=== PATIENT | female | born 1990 | race Caucasian/White ===

== ENCOUNTER 2016-06-06 11:44 | Emergency (ER) | payer SELFPAY ==
[2016-06-06] MEDS ORDERED: hydrOXYzine HCL TAB* 50 MG PO ONE (12:01)
[2016-06-06 14:37] VITALS: BP 116/59
--- NOTE | 2016-06-06 17:54 | ED ---
Shantel Hampton SooYoung, scribed for David Brito MD on 06/06/16 at 1200 . Allergic Reaction/Systemic - HPI Summary HPI Summary: A 25 y/o F NORAH presents to ED after an allergic reaction onset BUTCHER HEAD. Pt was eating a chicken sub when she became very pruritic, and was unable to breathe. She used her epi-pen. In ED, she states feeling OK, but feels as though "it's getting harder to breathe." She notes that the bottom of her throat hurts, but the top feels fine. - History of Current Complaint Chief Complaint: EDRespiratoryDistress Time Seen by Provider: 06/06/16 11:55 Hx Obtained From: Patient Hx Last Menstrual Period: one week ago Onset/Duration: Sudden Onset, Started minutes ago, Still Present Timing: Constant - Allergies/Home Medications Allergies/Adverse Reactions: Allergies Allergy/AdvReac Type Severity Reaction Status Date / Time mushrooms Allergy Severe Anaphylatic Uncoded 09/27/15 21:23 Shock PMH/Surg Hx/FS Hx/Imm Hx Previously Healthy: Yes Neurological History: Reports: Hx Headaches - SINCE 2011 Psychiatric History: Reports: Hx Depression - Surgical History Surgery Procedure, Year, and Place: 2013, T&A 2007 Infectious Disease History: No Infectious Disease History: Denies: Traveled Outside the [place] in Last 30 Days - Family History Known Family History: Positive: None Negative: Cardiac Disease, Diabetes - Social History Occupation: Unemployed - OTHER Lives: With Family Alcohol Use: None Hx Substance Use: No Substance Use Type: Reports: None Hx Tobacco Use: No Smoking Status (MU): Never Smoked Tobacco Review of Systems Positive: Other - allergic reaction Positive: Shortness Of Breath Positive: Other - pruritic, erythematous All Other Systems Reviewed And Are Negative: Yes Physical Exam Triage Information Reviewed: Yes Vital Signs On Initial Exam: Initial Vitals Temp Pulse Resp BP Pulse Ox 98.4 F 132 40 138/78 100 06/06/16 11:44 06/06/16 11:44 06/06/16 11:44 06/06/16 11:44 06/06/16 11:44 Vital Signs Reviewed: Yes Appearance: Positive: Well-Appearing, No Pain Distress Skin: Positive: Warm, Skin Color Reflects Adequate Perfusion, Dry Head/Face: Positive: Normal Head/Face Inspection Eyes: Positive: Normal ENT: Positive: Normal ENT inspection Neck: Positive: Supple, Nontender Respiratory/Lung Sounds: Positive: Clear to Auscultation, Breath Sounds Present Cardiovascular: Positive: Tachycardia Abdomen Description: Positive: Nontender, Soft Bowel Sounds: Positive: Present Musculoskeletal: Positive: Normal Neurological: Positive: Normal Psychiatric: Positive: Anxious - Mayo Coma Scale Coma Scale Total: 15 Diagnostics - Vital Signs Vital Signs Temp Pulse Resp BP Pulse Ox 06/06/16 11:54 24 06/06/16 11:50 98.4 F 128 23 122/62 100 06/06/16 11:44 98.4 F 132 40 138/78 100 - Laboratory Lab Statement: Any lab studies that have been ordered have been reviewed, and results considered in the medical decision making process. - EKG 1200 EKG Rhythm: Sinus Tachycardia Allergic Reaction Course/Dx - Course Course Of Treatment: Ana Cristina Lovell presented after accidently ingesting mushroom in a sandwich. EMS found her in extremis and administered her her own epi-pen as well as multiple other medications. She presented anxious and tachycardic and feeling still SOB. She was given hydroxyzine her for antihistamine and anxiolytic effects and observed. She improved a lot and her vitals normalized. She was observed until the epi had worn off. I prescribed another epi-pen for her but she has no insurance or money. I got SS's involved but there was no easy solution. I recommended that she carry benadryl at all times and call 911 at the first sign of allergic reaction. - Diagnoses Provider Diagnoses: food allergy Discharge - Discharge Plan Condition: Stable Disposition: HOME Patient Education Materials: Anaphylaxis (ED), Food Allergy (ED) Referrals: Jose Ramon Carney OLIVE GROWER [Primary Care Provider] - The documentation as recorded by the Shantel hidalgo SooYoung accurately reflects the service I personally performed and the decisions made by me, David Brito MD.
== END 2016-06-06 14:45 | disposition home or self-care (01) ==
LOC: ED 11:44
DX: T78.1XXA Other adverse food reactions, not elsewhere classified, initial encounter (principal); X58.XXXA Exposure to other specified factors, initial encounter; L29.9 Pruritus, unspecified
CPT/HCPCS: 93005; 99283; A9270-GY

== ENCOUNTER 2016-12-02 19:46 | Emergency (ER) | payer SELFPAY ==
[2016-12-02 20:28] VITALS: BP 131/95
--- NOTE | 2016-12-02 20:33 | UC ---
Abdominal Pain Female HPI - HPI Summary HPI Summary: This is a 26 yo female who recently found out she was who presents with c/o LLQ abdominal pain. She believes her LMP was 11/13/16. She denies vaginal discharge or bleeding. No dysuria or hematuria. She has been intermittently nauseous with vomiting. No fever. - History of Current Complaint Chief Complaint: UCAbdominalPain Stated Complaint: ABDOMINAL PAIN Hx Last Menstrual Period: 11/18/16 Allergies/Adverse Reactions: Allergies Allergy/AdvReac Type Severity Reaction Status Date / Time mushrooms Allergy Severe Anaphylatic Uncoded 12/02/16 20:01 Shock PMH/Surg Hx/FS Hx/Imm Hx Previously Healthy: Yes - - Surgical History Surgical History: Yes Surgery Procedure, Year, and Place: 2013, T&A 2007 - Family History Known Family History: Positive: None Negative: Cardiac Disease, Diabetes - Social History Alcohol Use: None Substance Use Type: None Smoking Status (MU): Never Smoked Tobacco - Immunization History Most Recent Influenza Vaccination: none Most Recent Tetanus Shot: declined Most Recent Pneumonia Vaccination: none Review of Systems Constitutional: Negative Skin: Negative Eyes: Negative ENT: Negative Respiratory: Negative Cardiovascular: Negative Gastrointestinal: Abdominal Pain, Vomiting, Nausea Genitourinary: Negative Motor: Negative Neurovascular: Negative Musculoskeletal: Negative Neurological: Negative Psychological: Negative Is Patient Immunocompromised?: No All Other Systems Reviewed And Are Negative: Yes Physical Exam Triage Information Reviewed: Yes Appearance: Well-Appearing Vital Signs: Initial Vital Signs Temp 98.1 F 12/02/16 19:57 Pulse 106 12/02/16 19:57 Resp 16 12/02/16 19:57 BP 131/95 12/02/16 19:57 Pulse Ox 100 12/02/16 19:57 Vital Signs Reviewed: Yes ENT Exam: Normal ENT: Positive: Hearing grossly normal Neck exam: Normal Neck: Positive: Supple, Nontender Respiratory: Positive: Lungs clear, Normal breath sounds. Negative: Crackles, Rhonchi, Wheezing Cardiovascular: Positive: RRR, No Murmur Abdomen Description: Positive: Soft, CVA Tenderness (L), Other: - mild LLQ Bowel Sounds: Positive: Present Musculoskeletal: Positive: Strength Intact Neurological: Positive: Alert, Muscle Tone Normal Psychological Exam: Normal Skin Exam: Normal Skin: Negative: rashes Diagnostics - Laboratory Diagnostic Studies Completed/Ordered: UA - +blood, +LE Abd Pain Female Course/Dx - Course Course Of Treatment: This is a 26 yo female who recently learned she was who presents with c/o abd pain. No assoc vag bleeding and UA is suggestive of possible UTI. US is necessary to assess in the setting of preg which is not available at this time. Recommend that she proceed to the ER for evaluation. She is stable to drive herself. - Differential Dx/Diagnosis Differential Diagnosis: Appendicitis, Pancreatitis, Pelvic Inflammatory Disease , Provider Diagnoses: 1. Abdominal pain during early Discharge - Discharge Plan Condition: Stable Disposition: HOME Patient Education Materials: Abdominal Pain in (ED) Referrals: Jose Ramon Carney [employer]PER[employer] [Primary Care Provider] - If Needed Additional Instructions: Instructions: 1. PLEASE PROCEED TO THE ER FOR FURTHER EVALUATION
== END 2016-12-02 20:28 | disposition home or self-care (01) ==
LOC: UCEAST 19:46
DX: O26.899 Other specified pregnancy related conditions, unspecified trimester (principal); R10.9 Unspecified abdominal pain; Z3A.00 Weeks of gestation of pregnancy not specified
CPT/HCPCS: 81003; 87086; 99212; G0463

== ENCOUNTER 2016-12-02 20:49 | Emergency (ER) | payer SELFPAY ==
[2016-12-02] MEDS ORDERED: NS 0.9% 1000 ML* 1,000 ML IV ONE (21:54)
[2016-12-02 22:20] LABS: Hematocrit 39 % (35-47); Hemoglobin 13.4 g/dl (12.0-16.0); Mean Corpuscular HGB Conc 35 g/dl (31-36); Mean Corpuscular Hemoglobin 31 pg (27-31); Mean Corpuscular Volume 90 fL (80-97); Mean Platelet Volume 8 um3 (7.4-10.4); Red Blood Count 4.32 10^6/ul (4.0-5.4); Red Cell Distribution Width 13 % (10.5-15); White Blood Count 9.5 10^3/ul (3.5-10.8)
[2016-12-02 22:36] LABS: Albumin 4.3 g/dL (3.2-5.2); BUN/Creatinine Ratio 13.3 (8-20); C Reactive Protein 6.03 mg/L (< 5.00); Calcium 9.7 mg/dL (8.6-10.3); EGFR African American 118.3 (>60); Globulin 2.7 g/dL (2-4); Magnesium 1.9 mg/dL (1.9-2.7); Potassium 3.5 mmol/L (3.5-5.0); Total Bilirubin 0.4 mg/dL (0.2-1.0)
[2016-12-02 22:47] LABS: Urine Bacteria Absent (Absent); Urine Bilirubin Negative (Negative); Urine Glucose Negative (Negative); Urine Nitrite Negative (Negative)
--- NOTE | 2016-12-02 23:41 | ED ---
Abdominal Pain/Female - HPI Summary HPI Summary: Patient presents to the ED with CC of left sided groin pain which she is concerned with ectopic. She took an at home test 3 days which came back positive. JOE is Dr. Villar and has appt next week. She has been on OCP's for months, and despite the medication, has become without missing any doses. She is . Groin pain began this morning without known injury or muscle strain. Denies urinary symptoms including hematuria. Denies history of kidney stones. Notes to mild left back pain yesterday, but denies any today. Pain is 2/10, constant and aching. Denies vaginal bleeding or discharge. Hx of ovarian cysts. Past surgical history includes . - History of Current Complaint Chief Complaint: EDAbdPain Stated Complaint: /ABD PAIN Time Seen by Provider: 12/02/16 21:54 Hx Obtained From: Patient Hx Last Menstrual Period: one week ago ?: Yes Onset/Duration: Sudden Onset Timing: Constant Severity Initially: Mild Severity Currently: Mild Pain Intensity: 5 Pain Scale Used: 0-10 Numeric Location: Discrete At: LLQ Radiates: No Character: Cramping Aggravating Factor(s): Nothing Alleviating Factor(s): Nothing Associated Signs and Symptoms: Positive: Negative. Negative: Vaginal Discharge , Nausea, Vomiting, Diarrhea - Risk Factors Ectopic Risk Factor: Negative Ovarian Torsion Risk Factor: Reproductive Age, Ovarian Cysts/Tumors Allergies/Adverse Reactions: Allergies Allergy/AdvReac Type Severity Reaction Status Date / Time mushrooms Allergy Severe Anaphylatic Uncoded 12/02/16 20:56 Shock PMH/Surg Hx/FS Hx/Imm Hx Previously Healthy: Yes Neurological History: Reports: Hx Headaches - SINCE 2011 Psychiatric History: Reports: Hx Depression - Surgical History Surgery Procedure, Year, and Place: 2013, T&A 2007 - Immunization History Hx Pertussis Vaccination: No Immunizations Up to Date: Unable to Obtain/Confirm Infectious Disease History: No Infectious Disease History: Denies: Traveled Outside the [place] in Last 30 Days - Family History Known Family History: Positive: None Negative: Cardiac Disease, Diabetes - Social History Occupation: Employed Part-time Lives: With Family Alcohol Use: None Hx Substance Use: No Substance Use Type: Reports: None Hx Tobacco Use: No Smoking Status (MU): Never Smoked Tobacco Review of Systems Constitutional: Negative Negative: Fever, Chills, Fatigue Cardiovascular: Negative Respiratory: Negative Positive: Abdominal Pain - LLQ pain Positive: no symptoms reported, see HPI Neurological: Negative Psychological: Normal All Other Systems Reviewed And Are Negative: Yes Physical Exam Triage Information Reviewed: Yes Vital Signs On Initial Exam: Initial Vitals Temp Pulse Resp BP Pulse Ox 98.0 F 102 18 148/87 100 12/02/16 20:52 12/02/16 20:52 12/02/16 20:52 12/02/16 20:52 12/02/16 20:52 Vital Signs Reviewed: Yes Appearance: Positive: Well-Appearing, Well-Nourished Skin: Positive: Warm, Skin Color Reflects Adequate Perfusion Head/Face: Positive: Normal Head/Face Inspection Eyes: Positive: EOMI, DEBBY, Conjunctiva Clear Neck: Positive: Supple, No Lymphadenopathy Respiratory/Lung Sounds: Positive: Clear to Auscultation, Breath Sounds Present Cardiovascular: Positive: Normal, RRR, Pulses are Symmetrical in both Upper and Lower Extremities Abdomen Description: Positive: Nontender, Soft. Negative: CVA Tenderness (R), CVA Tenderness (L) Bowel Sounds: Positive: Present Musculoskeletal: Positive: Normal, Strength/ROM Intact Neurological: Positive: Sensory/Motor Intact, Alert, Oriented to Person Place, Time, Speech Normal Psychiatric: Positive: Normal AVPU Assessment: Alert Diagnostics - Vital Signs Vital Signs Temp Pulse Resp BP Pulse Ox 12/02/16 22:16 109 99 12/02/16 22:13 134/70 12/02/16 20:56 98.0 F 102 18 148/87 100 12/02/16 20:52 98.0 F 102 18 148/87 100 - Laboratory Lab Results: Lab Results 12/02/16 12/02/16 12/02/16 Range/Units 22:10 22:10 22:10 WBC 9.5 (3.5-10.8) 10^3/ul RBC 4.32 (4.0-5.4) 10^6/ul Hgb 13.4 (12.0-16.0) g/dl Hct 39 (35-47) % MCV 90 (80-97) fL MCH 31 (27-31) pg MCHC 35 (31-36) g/dl RDW 13 (10.5-15) % Plt Count 250 (150-450) 10^3/ul MPV 8 (7.4-10.4) um3 Neut % (Auto) 65.9 (38-83) % Lymph % (Auto) 28.1 (25-47) % [place] % (Auto) 5.4 (1-9) % Eos % (Auto) 0.3 (0-6) % Baso % (Auto) 0.3 (0-2) % Absolute Neuts (auto) 6.3 (1.5-7.7) 10^3/ul Absolute Lymphs (auto) 2.7 (1.0-4.8) 10^3/ul Absolute Monos (auto) 0.5 (0-0.8) 10^3/ul Absolute Eos (auto) 0 (0-0.6) 10^3/ul Absolute Basos (auto) 0 (0-0.2) 10^3/ul Absolute Nucleated RBC 0 10^3/ul Nucleated RBC % 0 Sodium 136 (133-145) mmol/L Potassium 3.5 (3.5-5.0) mmol/L Chloride 104 (101-111) mmol/L Carbon Dioxide 24 (22-32) mmol/L Anion Gap 8 (2-11) mmol/L BUN 10 (6-24) mg/dL Creatinine 0.75 (0.51-0.95) mg/dL Est GFR ( Amer) 118.3 (>60) Est GFR (Non-Af Amer) 92.0 (>60) BUN/Creatinine Ratio 13.3 (8-20) Glucose 94 (70-100) mg/dL Lactic Acid 0.6 (0.5-2.0) mmol/L Calcium 9.7 (8.6-10.3) mg/dL Magnesium 1.9 (1.9-2.7) mg/dL Total Bilirubin 0.40 (0.2-1.0) mg/dL AST 16 (13-39) U/L ALT 15 (7-52) U/L Alkaline Phosphatase 45 (34-104) U/L Total Creatine Kinase 72 (10-223) U/L C-Reactive Protein 6.03 H (< 5.00) mg/L Total Protein 7.0 (6.4-8.9) g/dL Albumin 4.3 (3.2-5.2) g/dL Globulin 2.7 (2-4) g/dL Albumin/Globulin Ratio 1.6 (1-3) Lipase 22 (11.0-82.0) U/L Beta HCG, Quant 1801.00 mIU/mL Urine Color Urine Appearance Urine pH (5-9) Ur Specific [place] (1.010-1.030) Urine Protein (Negative) Urine Ketones (Negative) Urine Blood (Negative) Urine Nitrate (Negative) Urine Bilirubin (Negative) Urine Urobilinogen (Negative) Ur Leukocyte Esterase (Negative) Urine WBC (Auto) (Absent) Urine RBC (Auto) (Absent) Ur Squamous Epith Cells (Absent) Urine Bacteria (Absent) Urine Glucose (Negative) 12/02/16 Range/Units 22:20 WBC (3.5-10.8) 10^3/ul RBC (4.0-5.4) 10^6/ul Hgb (12.0-16.0) g/dl Hct (35-47) % MCV (80-97) fL MCH (27-31) pg MCHC (31-36) g/dl RDW (10.5-15) % Plt Count (150-450) 10^3/ul MPV (7.4-10.4) um3 Neut % (Auto) (38-83) % Lymph % (Auto) (25-47) % [place] % (Auto) (1-9) % Eos % (Auto) (0-6) % Baso % (Auto) (0-2) % Absolute Neuts (auto) (1.5-7.7) 10^3/ul Absolute Lymphs (auto) (1.0-4.8) 10^3/ul Absolute Monos (auto) (0-0.8) 10^3/ul Absolute Eos (auto) (0-0.6) 10^3/ul Absolute Basos (auto) (0-0.2) 10^3/ul Absolute Nucleated RBC 10^3/ul Nucleated RBC % Sodium (133-145) mmol/L Potassium (3.5-5.0) mmol/L Chloride (101-111) mmol/L Carbon Dioxide (22-32) mmol/L Anion Gap (2-11) mmol/L BUN (6-24) mg/dL Creatinine (0.51-0.95) mg/dL Est GFR ( Amer) (>60) Est GFR (Non-Af Amer) (>60) BUN/Creatinine Ratio (8-20) Glucose (70-100) mg/dL Lactic Acid (0.5-2.0) mmol/L Calcium (8.6-10.3) mg/dL Magnesium (1.9-2.7) mg/dL Total Bilirubin (0.2-1.0) mg/dL AST (13-39) U/L ALT (7-52) U/L Alkaline Phosphatase (34-104) U/L Total Creatine Kinase (10-223) U/L C-Reactive Protein (< 5.00) mg/L Total Protein (6.4-8.9) g/dL Albumin (3.2-5.2) g/dL Globulin (2-4) g/dL Albumin/Globulin Ratio (1-3) Lipase (11.0-82.0) U/L Beta HCG, Quant mIU/mL Urine Color Yellow Urine Appearance Clear Urine pH 6.0 (5-9) Ur Specific [place] 1.011 (1.010-1.030) Urine Protein Negative (Negative) Urine Ketones Negative (Negative) Urine Blood 2+ H (Negative) Urine Nitrate Negative (Negative) Urine Bilirubin Negative (Negative) Urine Urobilinogen Negative (Negative) Ur Leukocyte Esterase Trace H (Negative) Urine WBC (Auto) Trace(0-5/hpf) (Absent) Urine RBC (Auto) Trace(0-2/hpf) (Absent) Ur Squamous Epith Cells Present H (Absent) Urine Bacteria Absent (Absent) Urine Glucose Negative (Negative) Result Diagrams: 12/02/16 22:10 12/02/16 22:10 Lab Statement: Any lab studies that have been ordered have been reviewed, and results considered in the medical decision making process. Abdominal Pain Fem Course/Dx - Course Course Of Treatment: Patient sent to US for r/o torsion and ectopic. US shows 4 weeks 6 days gestational sac. No ovarian torsion, ectopic or cysts indentified. Pain could be a muscular strain in the groin or kidney stone. Patient denies current back pain or hematuria or any urinary symptoms. Treatment options explained. Patient would like to be discharge and follow up with Aurea next week. She states the pain is mild at 2/10. UA shows blood, but no leuks. The pain could be from a kidney stone and patient continues to state she would like to go home and will return if symptoms worsen. She is discharged and follow up given. - Diagnoses Differential Diagnosis: Positive: Other - UTI, ectopic, normal , kidney stone Provider Diagnoses: , LLQ pain Discharge - Discharge Plan Condition: Stable Disposition: HOME Patient Education Materials: (ED) Referrals: Avery Villar MD [Medical Doctor] - Jose Ramon Carney NP [Primary Care Provider] - Additional Instructions: Follow up with Dr. Villar If symptoms become worse, please return to the ED Tylenol for any discomfort As discussed, this could be a strained muscle which could be improved with moist heat to the area. Urine looked OK and without infection.
[2016-12-02 23:49] VITALS: BP 132/71
--- NOTE | 2016-12-03 07:56 | RAD ---
HISTORY: Left lower quadrant pain COMPARISONS: None relevant TECHNIQUE: Multiple transverse and longitudinal ultrasound images were obtained of the pelvis using grayscale, color Doppler, and spectral Doppler imaging using the endovaginal transducer. FINDINGS: UTERUS: The uterus is normal in shape, size, contour, and echotexture. Cervical nabothian cysts are noted. GESTATION: There is a gestational sac. No pole is identified. The mean sac diameter measures 0.41 cm for a gestational age of 4 weeks and 6 days. The MOLLY is August 05, 2014. cardiac motion is not detected. Gross movement is not identified. anatomy cannot be assessed secondary to early dates. The amniotic fluid is qualitatively normal. There are no retroplacental fluid collections. CUL-DE-SAC: There is a small amount of simple fluid within the cul-de-sac. This may be physiologic in a reproductive age female. RIGHT OVARY: The right ovary measures 4.4 x 3.1 x 2.7 cm. A follicular cyst is noted. Normal arterial and venous waveforms are identifiable within the ovary on spectral Doppler imaging. LEFT OVARY: The left ovary measures 2.4 x 1.9 x 1.6 cm. Multiple small follicles are noted. Normal arterial and venous waveforms are identifiable within the ovary on spectral Doppler imaging. BLADDER: The bladder is not well visualized. IMPRESSION: 1. A GESTATIONAL SAC WITHOUT POLE IS IDENTIFIED. THE GESTATIONAL AGE BY MEAN SAC DIAMETER IS 4 WEEKS AND 6 DAYS. RECOMMEND ATTENTION ON FOLLOW-UP IMAGING CORRELATION WITH SERIAL BETA-HCG LEVELS. 2. NO SONOGRAPHIC FEATURES OF TORSION. PLEASE NOTE THAT PARTIAL OR INTERMITTENT TORSION MAY BE SONOGRAPHICALLY NORMAL.
== END 2016-12-02 23:50 | disposition home or self-care (01) ==
LOC: ED 20:49
DX: R10.30 Lower abdominal pain, unspecified (principal); Z34.90 Encounter for supervision of normal pregnancy, unspecified, unspecified trimester
CPT/HCPCS: 36415; 76817; 80053; 81003; 81015; 82550; 83605; 83690; 83735; 84702; 85025; 86140; 99283

== ENCOUNTER 2017-07-23 22:07 | Inpatient (IN) | payer BC, OTHER ==
[2017-07-23] MEDS ORDERED: ceFOXitin 2 GM IVPREMIX* 2 GM/50 ML BAG IVPB ONE (22:19)
[2017-07-23] MEDS ORDERED: Metoclopramide IV* 5 MG/ML 2 ML VIAL IV PRN (22:30)
[2017-07-23] MEDS ORDERED: Famotidine TAB* 20 MG PO ONE (22:32)
[2017-07-23 22:50] LABS: ABS Basophils 0 10^3/ul (0-0.2); ABS Eosinophils 0 10^3/ul (0-0.6); ABS Lymphocytes 2.4 10^3/ul (1.0-4.8); ABS Monocytes 0.6 10^3/ul (0-0.8); ABS Neutrophils 8.6 10^3/ul (1.5-7.7); ABS Nucleated RBC 0 10^3/ul; Eosinophil % 0.3 % (0-6); Hematocrit 32 % (35-47); Lymphocyte % 20.8 % (25-47); Mean Corpuscular HGB Conc 34 g/dl (31-36); Mean Corpuscular Hemoglobin 31 pg (27-31); Mean Corpuscular Volume 90 fL (80-97); Mean Platelet Volume 8.6 um3 (7.4-10.4); Nucleated Red Blood Cells % 0; Platelet Count 174 10^3/ul (150-450); Red Blood Count 3.57 10^6/ul (4.0-5.4); Red Cell Distribution Width 13 % (10.5-15); White Blood Count 11.7 10^3/ul (3.5-10.8)
[2017-07-23] MEDS ORDERED: fentaNYL* 50 MCG/ML 2 ML VIAL (100 MCG VIAL) ONE (22:55)
[2017-07-23] MEDS ORDERED: Midazolam* 1 MG/ML 5 ML VIAL (5 MG) ONE (22:55)
[2017-07-23] MEDS ORDERED: Morphine PF AMP (0.5MG/ML)* 5 MG/10 ML AMP ONE (22:56)
[2017-07-23] MEDS ORDERED: Scopolamine 1.5 mg* PATCH TRANSDERM PRN (23:32)
[2017-07-23] MEDS ORDERED: Naloxone* 0.4 MG/ML 1 ML VIAL IV PRN ×2 (23:32→23:35)
[2017-07-23] MEDS ORDERED: Ondansetron ODT TAB* 4 MG PO PRN (23:32)
[2017-07-23] MEDS ORDERED: DiMENhydriNATE IV* 50 MG/ML VIAL IV PUSH PRN (23:32)
[2017-07-23] MEDS ORDERED: Nalbuphine* 20 MG/ML 1 ML VIAL IV PRN (23:32)
[2017-07-23] MEDS ORDERED: oxyCODONE/Acetamin 5/325 MG* TAB PO PRN (23:32)
[2017-07-23] MEDS ORDERED: PROCHLORPERAZINE INJ 5 MG/ML 2 ML VIAL IV PRN (23:32)
[2017-07-23] MEDS ORDERED: fentaNYL* 50 MCG/ML 2 ML VIAL (100 MCG VIAL) IV PRN (23:35)
[2017-07-24] MEDS ORDERED: Dexamethasone IV* 4 MG/ML 1 ML (4 MG) ONE (00:18)
[2017-07-24] MEDS ORDERED: EPHEDrine (Pressors)* 50 MG/ML VIAL ONE (00:18)
[2017-07-24] MEDS ORDERED: Ketorolac INJ* 30 MG/ML 1 ML VIAL ONE (00:18)
[2017-07-24] MEDS ORDERED: PROCHLORPERAZINE INJ 5 MG/ML 2 ML VIAL ONE (00:18)
[2017-07-24] MEDS ORDERED: Ondansetron INJ* 2 MG/ML VIAL ONE (00:18)
[2017-07-24] MEDS ORDERED: Scopolamine 1.5 mg* PATCH ONE (00:19)
[2017-07-24] MEDS ORDERED: Metoclopramide IV* 5 MG/ML 2 ML VIAL ONE (00:19)
[2017-07-24] MEDS ORDERED: Bupivacaine-MPF SPINAL* 7.5 MG/2 ML AMP ONE (00:19)
[2017-07-24] MEDS ORDERED: Phenylephrine IV* 40 MCG/ML 10 ML SYRINGE ONE (00:19)
[2017-07-24] MEDS ORDERED: Famotidine IV* 10 MG/ML 2 ML (20 mg) ONE (00:19)
[2017-07-24] MEDS ORDERED: OXYTOCIN* 10 UNITS/ML 1 ML VIAL ONE (00:20)
[2017-07-24] MEDS ORDERED: Dibucaine 1% 28.35 GM TUBE PR PRN (00:51)
[2017-07-24] MEDS ORDERED: Acetaminophen TAB* 325 MG PO PRN (00:51)
[2017-07-24] MEDS ORDERED: Witch Hazel PAD* JAR TOPICAL PRN (00:51)
[2017-07-24] MEDS ORDERED: Glycerin ADULT SUPP PR PRN (00:51)
[2017-07-24] MEDS ORDERED: Oxytocin in LR* 20 UNITS/1,000 ML BAG IVPB SCH (01:00)
[2017-07-24] MEDS: Ibuprofen TAB* 600 MG PO SCH ×2 (03:53→11:14)
[2017-07-24] MEDS: Docusate CAP* 100 MG PO SCH ×3 (08:36→20:32)
[2017-07-24] MEDS: Simethicone TAB* 80 MG TAB.CHEW PO SCH ×4 (08:36→20:32)
[2017-07-24] MEDS ORDERED: Varicella Virus Vaccine Live* 0.5 ML VIAL SUBCUT ONE (09:00)
--- NOTE | 2017-07-24 12:20 | OP ---
OPERATIVE REPORT: DATE OF OPERATION: 07/23/17 DATE OF : 86 SURGEON: Mariana Rivera MD MANUSCRIPTS ARCHIVIST: Dr. Park ANESTHESIOLOGIST: Dr. De La O. PRE-OP DIAGNOSIS: Intrauterine at 38-1/7 weeks, desires repeat section, and spontaneous rupture of membranes. POST-OP DIAGNOSIS: Intrauterine at 38-1/7 weeks, desires repeat section, and spontaneous rupture of membranes, delivered. OPERATIVE PROCEDURE: Repeat low transverse section. ESTIMATED BLOOD LOSS: 600 mL. URINE OUTPUT: 400 mL of clear yellow urine. FLUIDS: 2100 mL of crystalloid. FINDINGS: Revealed a vertex female with Apgars 8 at 1 minute, 9 at 5 minutes. Weight was 7 pounds 4 ounces. Nuchal cord x1. No meconium. Normal- appearing tubes and ovaries bilaterally. Normal-appearing placenta, manually extracted and intact with 3-vessel cord. COMPLICATIONS: None apparent. DISPOSITION: Stable to recovery room. DESCRIPTION OF PROCEDURE: The patient was placed in dorsal lithotomy position. The abdomen was prepped and draped in a sterile standard fashion. The patient was identified with the universal protocol for correct the procedure, position, and patient, and anesthesia was tested to appropriate level. An incision was made through prior incision using a scalpel and this was carried down through to the fascia. Fascia was scored in the midline and extended laterally and superiorly using Bo scissors. This fascia was superiorly and inferiorly with blunt and sharp dissection. The peritoneum was entered bluntly and the peritoneal incision was extended bluntly. Bladder blade was inserted. Lower uterine segment was identified. There was no evidence of adhesions. The lower uterine segment was tented up with an Allis. Incision was made with scalpel. This was carried down through to membranes. The incision was extended laterally and superiorly using bandage scissors. The was delivered vertex. Nuchal cord reduced. Anterior and posterior shoulder was delivered. The cord was allowed to pulse for greater than 30 seconds. The cord was then clamped and cut and the infant was handed off to waiting parking lot signaler. Appropriate cord blood was obtained. Placenta was then manually extracted, noted to be intact 3-vessel cord. The uterine cavity was explored with laparotomy sponge and noted to be free of any membranes or placental tissue. The uterus was exteriorized, wrapped in warm moist laparotomy sponge and the incision itself was closed, first layer running locked 0, second layer running 0 imbricated. A [id number] was required to the left midline hysterotomy site for complete hemostasis. The uterus was returned intraabdominally. Colic gutters were lavaged. Hemostasis was assured. The peritoneum was then clamped with Kellys and reapproximated using 3 -0 Vicryl in a running fashion. Subfascial area was lavaged. Hemostasis assured with Bovie coagulation, and the fascia was itself was reapproximated using 0 Vicryl x2 in a running fashion. Subcu was lavaged, hemostasis assured with Bovie coagulation, and subcuticular fat stitch was placed using 3-0 Polysorb in an interrupted fashion. The skin was then reapproximated using a 4- 0 Monocryl in a subcuticular fashion. Mastisol and Steris were applied. All sponge, needle, instrument, and blade counts were correct throughout the case. The patient tolerated the procedure well and went to recovery room in stable condition. [id number]/[facility] #: [id number] ANURAG
[2017-07-24] MEDS ORDERED: oxyCODONE/Acetamin 5/325 MG* TAB PO PRN (15:26)
[2017-07-24] MEDS: oxyCODONE/Acetamin 5/325 MG* TAB PO PRN (20:33)
[2017-07-24] MEDS: Ibuprofen TAB* 600 MG PO PRN (20:33)
[2017-07-25] MEDS: Ibuprofen TAB* 600 MG PO PRN ×2 (03:41→09:59)
[2017-07-25] MEDS: oxyCODONE/Acetamin 5/325 MG* TAB PO PRN ×3 (03:41→13:39)
[2017-07-25 07:20] LABS: ABS Basophils 0 10^3/ul (0-0.2); ABS Eosinophils 0 10^3/ul (0-0.6); ABS Monocytes 0.6 10^3/ul (0-0.8); ABS Neutrophils 8.5 10^3/ul (1.5-7.7); ABS Nucleated RBC 0 10^3/ul; Eosinophil % 0.3 % (0-6); Hematocrit 25 % (35-47); Hemoglobin 8.5 g/dl (12.0-16.0); Mean Corpuscular HGB Conc 35 g/dl (31-36); Mean Corpuscular Hemoglobin 32 pg (27-31); Mean Corpuscular Volume 91 fL (80-97); Mean Platelet Volume 8.5 um3 (7.4-10.4); Nucleated Red Blood Cells % 0; Platelet Count 153 10^3/ul (150-450); Red Blood Count 2.68 10^6/ul (4.0-5.4); Red Cell Distribution Width 13 % (10.5-15); White Blood Count 12.2 10^3/ul (3.5-10.8)
[2017-07-25 08:06] VITALS: BP 117/57
[2017-07-25] MEDS: Simethicone TAB* 80 MG TAB.CHEW PO SCH ×2 (08:49→13:39)
[2017-07-25] MEDS: Docusate CAP* 100 MG PO SCH ×2 (08:49→13:38)
[2017-07-25] MEDS ORDERED: Ferrous Gluconate TAB* 324 MG TAB PO SCH (09:00)
[2017-07-25] MEDS ORDERED: Ondansetron ODT TAB* 4 MG ONE (14:17)
[2017-07-25] MEDS ORDERED: Ondansetron ODT TAB* 4 MG PO ONE (14:24)
[2017-07-26] MEDS ORDERED: Scopolamine PATCH Remove* 1 NOTE MISC PATCH OFF PRN (23:33)
== END 2017-07-25 15:20 | disposition home or self-care (01) | DRG 540 ==
LOC: MCHOBOUT 22:07 → MCHOB 22:18
PROVIDERS: ADMIT Obstetrics & Gynecology; ATTEND Obstetrics & Gynecology
PROC: 10D00Z1 Extraction of Products of Conception, Low, Open Approach (ICD-10-PCS; principal; 2017-07-23 23:16)
DX: O34.211 Maternal care for low transverse scar from previous cesarean delivery (principal); O42.02 Full-term premature rupture of membranes, onset of labor within 24 hours of rupture; O90.81 Anemia of the puerperium; D64.9 Anemia, unspecified; O69.81X0 Labor and delivery complicated by cord around neck, without compression, not applicable or unspecified; Z3A.38 38 weeks gestation of pregnancy; Z37.0 Single live birth
CPT/HCPCS: 36415; 85025; 86850; 86900; 86901; A9270-GY; J0694; J0780; J1100; J1885; J2250; J2405; J2590; J2765; J3010

== ENCOUNTER 2021-08-02 17:23 | Observation (INO) ==
[2021-08-02 18:33] LABS: ABS Eosinophils 0.1 10^3/ul (0-0.6); ABS Lymphocytes 1.9 10^3/ul (1.0-4.8); ABS Monocytes 0.4 10^3/ul (0-0.8); ABS Neutrophils 4.6 10^3/ul (1.5-7.7); Eosinophil % 1.6 %; Hematocrit 38 % (35-47); Hemoglobin 13.1 g/dL (12.0-16.0); Lymphocyte % 27.2 %; Mean Corpuscular HGB Conc 35 g/dL (31-36); Mean Corpuscular Hemoglobin 31 pg (27-31); Mean Corpuscular Volume 88 fL (80-97); Mean Platelet Volume 7.9 fL (7.4-10.4); Platelet Count 248 10^3/uL (150-450); Red Cell Distribution Width 12 % (10-15); White Blood Count 7.1 10^3/uL (3.5-10.8)
[2021-08-02 18:55] LABS: High Sens Troponin Baseline < 3 pg/mL (<15)
[2021-08-02 19:25] LABS: ALT 17 U/L (7-52); AST 18 U/L (13-39); Albumin 4.6 g/dL (3.2-5.2); Albumin/Globulin Ratio 2.3 (1-3); Alkaline Phosphatase 63 U/L (35-149); Anion Gap 5 mmol/L (2-11); Blood Urea Nitrogen 13 mg/dL (6-24); CO2 Carbon Dioxide 25 mmol/L (22-32); Calcium 9.6 mg/dL (8.6-10.3); Chloride 109 mmol/L (101-111); Glucose 93 mg/dL (70-100); Magnesium 1.9 mg/dL (1.9-2.7); Potassium 3.8 mmol/L (3.5-5.0); Sodium 139 mmol/L (135-145); Total Protein 6.6 g/dL (6.4-8.9); eGFR CKD-EPI 84.3 (>60)
[2021-08-02 19:38] LABS: TSH Ultra Thyroid Stim Horm 2.12 mcIU/mL (0.34-5.60)
[2021-08-02 20:01] LABS: HCG Pregnancy < 0.60 mIU/mL
[2021-08-02 20:02] LABS: High Sensitivity Troponin 1 Hr < 3 pg/mL (<15)
[2021-08-02 22:25] LABS: Urine Benzodiazepine Screen None Detected (None Detect); Urine Cannabinoids Screen Presumptive Positive (None Detect); Urine Opiates Screen None Detected (None Detect)
[2021-08-02 22:40] LABS: Urine Appearance Clear; Urine Bacteria Absent (Absent); Urine Bilirubin Negative (Negative); Urine Blood 2+ (Negative); Urine Color Yellow; Urine Glucose Negative (Negative); Urine Ketones Negative (Negative); Urine Nitrite Negative (Negative); Urine Protein Negative (Negative); Urine Red Blood Cell Trace(0-2/hpf) (Absent); Urine Urobilinogen Negative (Negative); Urine White Blood Cell Absent (Absent)
[2021-08-03 02:28] LABS: Vitamin B12 822 pg/mL (180-914)
[2021-08-03] MEDS ORDERED: Perflutren Lipid Microsphere 3 ML VIAL ONE (09:42)
[2021-08-04 08:27] VITALS: BP 109/67
== END 2021-08-04 15:42 | disposition home or self-care (01) ==
LOC: EDHOLD 17:23 → ED 17:23 → SUATTDRO 23:55 → EDHOLD 08-03 06:06 → MEDTELE 08-03 06:17
PROVIDERS: ADMIT Internal Medicine; ATTEND Internal Medicine